=== PATIENT | male | born 1995 ===

== ENCOUNTER 2018-03-21 14:36 | Emergency (ER) | payer SELFPAY ==
[2018-03-21 15:12] VITALS: BP 113/68
--- NOTE | 2018-03-21 15:36 | UC ---
Knee Pain HPI - HPI Summary HPI Summary: 22 yo male with the onset of left knee pain about a week ago no injury Type one DM - History of Current Complaint Chief Complaint: UCLowerExtremity Stated Complaint: LEFT KNEE COMPLAINT Time Seen by Provider: 03/21/18 15:08 Hx Obtained From: Patient Onset/Duration: Gradual Onset, Lasting Days Severity Initially: Mild Severity Currently: Mild Pain Intensity: 0 Pain Scale Used: 0-10 Numeric Character: Aching Aggravating Factor(s): Weight Bearing, Stairs Alleviating Factor(s): Rest Associated Signs And Symptoms: Positive: Negative Able to Bear Weight: Yes - Allergies/Home Medications Allergies/Adverse Reactions: Allergies Allergy/AdvReac Type Severity Reaction Status Date / Time No Known Allergies Allergy Verified 03/21/18 15:12 Home Medications: Home Medications Insulin Aspart [Novolog Flexpen] 100 unit SC SEE INSTRUCTIONS 03/21/18 [History Confirmed 03/21/18] Insulin Glargine,Hum.rec.anlog [Lantus Solostar 5x3 ML PENS] 30 units SUBCUT BEDTIME 03/21/18 [History Confirmed 03/21/18] PMH/Surg Hx/FS Hx/Imm Hx Previously Healthy: Yes Endocrine History: Diabetes - type 1 - Surgical History Surgical History: None - Family History Known Family History: Positive: Cardiac Disease, Hypertension, Diabetes - Social History Alcohol Use: Occasionally Substance Use Type: None Smoking Status (MU): Never Smoked Tobacco Review of Systems Constitutional: Negative Skin: Negative Eyes: Negative ENT: Negative Respiratory: Negative Cardiovascular: Negative Gastrointestinal: Negative Genitourinary: Negative Motor: Negative Neurovascular: Negative Musculoskeletal: Arthralgia Neurological: Negative Psychological: Negative Is Patient Immunocompromised?: No All Other Systems Reviewed And Are Negative: Yes Physical Exam Triage Information Reviewed: Yes Appearance: Well-Appearing, No Pain Distress, Well-Nourished Vital Signs: Initial Vital Signs Temp 98.7 F 03/21/18 15:07 Pulse 108 03/21/18 15:07 Resp 17 03/21/18 15:07 BP 113/68 03/21/18 15:07 Pulse Ox 100 03/21/18 15:07 Vital Signs Reviewed: Yes Eyes: Positive: Conjunctiva Clear ENT: Positive: Hearing grossly normal, Uvula midline. Negative: Nasal congestion, Nasal drainage, Trismus, Muffled voice, Hoarse voice, Sinus tenderness Neck: Positive: Supple, Nontender Respiratory: Positive: Lungs clear, Normal breath sounds, No respiratory distress Cardiovascular: Positive: RRR, No Murmur Musculoskeletal: Positive: Strength Intact, ROM Intact, No Edema Neurological: Positive: Alert Psychological Exam: Normal Skin Exam: Normal Diagnostics - Radiology No standard instances Xray Interpretation: No Acute Changes Radiology Interpretation Completed By: ED Physician Knee Pain Course/Dx - Differential Dx/Diagnosis Provider Diagnoses: left knee pain. ? etiology Discharge - Sign-Out/Discharge Documenting (check all that apply): Discharge/Admit/Transfer - Discharge Plan Condition: Stable Disposition: HOME Patient Education Materials: Knee Pain (ED) Referrals: Non Staff,Doctor [Primary Care Provider] - Additional Instructions: recheck in 1-2 weeks if knee not back to normal take copies of films with you recheck sooner for new or worsening symptoms - Billing Disposition and Condition Condition: STABLE Disposition: HOME
--- NOTE | 2018-03-21 15:57 | RAD ---
INDICATION: Left knee pain. TECHNIQUE: 4 views of the left knee were obtained. FINDINGS: The bones are in normal alignment. No joint effusion or fracture is seen. Joint spaces appear maintained. IMPRESSION: NEGATIVE EXAM.
== END 2018-03-21 16:05 | disposition home or self-care (01) ==
LOC: UCCORT 14:36
DX: M25.562 Pain in left knee (principal); E10.8 Type 1 diabetes mellitus with unspecified complications; Z79.4 Long term (current) use of insulin
CPT/HCPCS: 99201; G0463